=== PATIENT | female | born 1940 | race Caucasian/White ===

== ENCOUNTER → 2016-03-07 | Outpatient (CLI) | payer OTHER, MEDICARE ==
--- NOTE | 2016-03-07 16:21 | MA ---
Screening Digital Mammogram With iCAD Analysis Clinical Indications: Routine screening. The patient has had benign breast biopsies bilaterally. Technique: Standard cephalocaudal and mediolateral oblique projections were obtained. This examinatio n was processed by the [employer] computer aided detection system. Comparison: February 2015, February 2014, February 2013, October 2011, October 2010, September 2009, 2008. Breast density: Type B; Scattered fibroglandular densities. Findings: CAD was reviewed. No masses, suspicious calcifications or other signs of malignancy are id entified. There has been no significant change in the appearance of either breast. Impression: Negative mammogram. BI-RADS 1. Recommendation: Routine mammographic screening in one year as long as physical examination is negativ [facility]. Negative mammography should not preclude additional workup of a clinically suspicious finding. The patient's information is entered into a reminder system with a target due date for her next mammo gram.
== END ==
LOC: FIMAGING 12:55
DX: Z12.31 Encounter for screening mammogram for malignant neoplasm of breast (principal)
CPT/HCPCS: G0202

== ENCOUNTER → 2017-03-12 | Outpatient (CLI) | payer OTHER, MEDICARE | LOC: FIMAGING 09:40 | PROVIDERS: ATTEND Family Medicine | DX: Z12.31 Encounter for screening mammogram for malignant neoplasm of breast (principal) ==

== ENCOUNTER → 2018-03-13 | Outpatient (CLI) | payer OTHER, MEDICARE | LOC: FIMAGING 11:36 | PROVIDERS: ATTEND Family Medicine | DX: Z12.31 Encounter for screening mammogram for malignant neoplasm of breast (principal) ==

== ENCOUNTER → 2018-06-25 | Outpatient (CLI) | payer OTHER, MEDICARE | LOC: BHFA 13:15 | PROVIDERS: ATTEND Internal Medicine Cardiovascular Disease | DX: R07.9 Chest pain, unspecified (principal) ==

== ENCOUNTER 2018-07-09 08:21 | Day surgery (SDC) | payer OTHER, MEDICARE ==
[2018-07-09] MEDS ORDERED: FAMOTIDINE 20 MG TAB PO ONE (08:22)
[2018-07-09] MEDS ORDERED: NS 1,000 ML IV ONE (08:22)
[2018-07-09] MEDS ORDERED: ASPIRIN EC 325 MG TAB PO ONE (08:22)
[2018-07-09] MEDS ORDERED: diphenhydrAMINE 25 MG CAP PO ONE (08:22)
[2018-07-09] MEDS ORDERED: IOPAMIDOL (ISOVUE 370) 100 ML BTL IV ONE (09:09)
[2018-07-09] MEDS ORDERED: MIDAZOLAM 2 MG/2 ML VIAL ONE (09:09)
[2018-07-09] MEDS ORDERED: HEPARIN 10,000 UNIT/10 ML MDV (1,000 UNIT/ML) ONE (09:09)
[2018-07-09] MEDS ORDERED: VERAPAMIL 5 MG/2 ML VIAL ONE (09:09)
[2018-07-09] MEDS ORDERED: fentaNYL 100 MCG/2 ML INJ ONE (09:09)
[2018-07-09] MEDS ORDERED: LIDOCAINE 1% 5 ML SDV ONE (09:10)
[2018-07-09 09:12] LABS: PLATELET COUNT 316 10^3/uL (150-400)
[2018-07-09 09:35] LABS: INR 0.97 (0.83-1.16); PROTIME(PATIENT) 12.5 SEC (12.0-15.0)
--- NOTE | 2018-07-09 10:24 | PDPROPOC ---
Sedation Plan of Care Sedation Plan of Care: vital signs stable, mental status noted, patient educated of risks, benefits, alternatives, patient can tolerate sedation ASA Classification: ASA 1 Planned drugs: fentanyl, midazolam Mallampati Score: Class 1 Mallampati Reference Image: Patient passed 3-3-2 rule?: Yes
--- NOTE | 2018-07-09 10:24 | PDHPUP ---
History & Physical Update H&P update statement: This history and physical update is based on an assessment of the patient which was completed after admission or registration (within 24 hours), but prior to the surgery/procedure. H&P update: H&P reviewed & patient examined, no change in patient's condition since H&P completed
--- NOTE | 2018-07-09 10:25 | PDDXCAT ---
Diagnostic Cath Note - . Date: 07/09/18 Die Try Out Worker: Regis Indication: Class I/II angina, intolerance to med therapy or failure to respond High-risk criteria on non-invasive testing: stress echocardiographic evidence of extensive ischemia - Procedure Access: right wrist Procedure: left heart catheterization, coronary angiography, left ventriculogram - Materials Left Heart Cath materials: standard multipack (JL4, JR4, pigtail) - Findings-Left Heart Catheterization LM: Normal LAD: Normal LCX: Normal RCA: Dominant: Normal EDP: 12 mm of mercury LVEF: 65 Wall motion: Normal Complications: None Estimated blood loss: <50ml Closure method: TR Band Assessment: Angiographically no coronary arteries. Normal LV systolic function. AFib with exercise
--- NOTE | 2018-07-16 17:05 | CPEKG ---
Test Reason : OPEN Blood Pressure : / mmHG Vent. Rate : 061 BPM Atrial Rate : 061 BPM P-R Int : 172 ms QRS Dur : 089 ms QT Int : 421 ms P-R-T Axes : 074 078 052 degrees QTc Int : 424 ms Sinus rhythm Confirmed by Owen Khan ([id number]) on 07/16/2018 5:05:01 PM Referred By: SHIRAZ MUNOZ Confirmed By:Owen Khan
== END 2018-07-09 13:15 | disposition home or self-care (01) ==
LOC: FCATH 08:21
PROVIDERS: ATTEND Internal Medicine Interventional Cardiology
DX: I20.9 Angina pectoris, unspecified (principal); I10 Essential (primary) hypertension; I48.91 Unspecified atrial fibrillation
CPT/HCPCS: 93458; C1769; J1644; J2250; J3010; Q9967